=== PATIENT | female | born 1985 | race Caucasian/White ===

== ENCOUNTER 2017-01-01 11:29 | Observation (INO) | payer MEDICAID, OTHER ==
[2017-01-01 11:30] VITALS: BMI 23.0
[2017-01-01 11:41] VITALS: RESP 18; O2SAT 100
--- NOTE | 2017-01-01 12:28 | ED PDOC ---
Arrival/HPI - General Chief Complaint: Dizziness/Lightheaded Time Seen by Provider: 01/01/17 11:44 Historian: Patient - History of Present Illness Narrative History of Present Illness (Text): 01/01/17 11:57 A 31 year old female, who denies any past medical history, presents to the emergency department for dizziness, which began 2 days ago. The patient reports that she was at [employer] and immediately after a roller coaster ride she began to feel dizzy ,with a spinning sensation, and associated nausea, and the symptoms have persisted ever since. She denies any vomiting, vision changes, fever, shortness of breath, abdominal pain, polyuria, dysuria, headaches, or any other symptoms at this time. LMP: 12/25/16 PMD: None. Time/Duration: < week (2 days ) Symptom Onset: Sudden Symptom Course: Unchanged Activities at Onset: Significant (Roller coaster) Context: Other ([employer]) Past Medical History - Provider Review Nursing Documentation Reviewed: Yes - Cardiac Hx Cardiac Disorders: No - Pulmonary Hx Respiratory Disorders: No - Neurological Hx Neurological Disorder: No - HEENT Hx HEENT Disorder: No - Renal Hx Renal Disorder: No - Endocrine/Metabolic Hx Endocrine Disorders: No - Hematological/Oncological Hx Blood Disorders: No - Integumentary Hx Dermatological Disorder: No - Musculoskeletal/Rheumatological Hx Musculoskeletal Disorders: No - Gastrointestinal Hx Gastrointestinal Disorders: No - Genitourinary/Gynecological Hx Genitourinary Disorders: No - Psychiatric Hx Psychophysiologic Disorder: No Hx Substance Use: No - Surgical History Hx Section: Yes (x2) Family/Social History - Physician Review Nursing Documentation Reviewed: Yes Family/Social History: No Known Family HX Smoking Status: Never Smoked Hx Alcohol Use: No Hx Substance Use: No Allergies/Home Meds Allergies/Adverse Reactions: Allergies No Known Allergies Allergy (Verified 11/04/15 09:35) Home Medications: Home Meds Medication Instructions Recorded Confirmed Vit No.126/Iron/Folic 1 mg PO DAILY 11/04/15 01/01/17 [Classic Tablet] Review of Systems - Physician Review All systems were reviewed & negative as marked: Yes - Review of Systems Constitutional: absent: Fevers Eyes: absent: Vision Changes Respiratory: absent: SOB Cardiovascular: absent: Chest Pain Gastrointestinal: Nausea. absent: Abdominal Pain, Vomiting Genitourinary Female: absent: Dysuria, Urine Output Changes Neurological: Dizziness (x2 days). absent: Headache, Focal Weakness, Speech Changes, Facial Droop, Disequilibrium, Seizure Physical Exam Vital Signs Reviewed: Yes Vital Signs Temp Pulse Resp BP Pulse Ox 01/01/17 13:45 97.9 F 72 18 98/62 L 100 01/01/17 11:36 98.4 F 85 18 115/71 100 Temperature: Afebrile Blood Pressure: Normal Pulse: Regular Respiratory Rate: Normal Appearance: Positive for: Well-Appearing, Non-Toxic, Comfortable Pain Distress: None Mental Status: Positive for: Alert and Oriented X 3 Finger Stick Blood Glucose: 84 - Systems Exam Head: Present: Atraumatic, Normocephalic Pupils: Present: PERRL Extroacular Muscles: Present: EOMI Conjunctiva: Present: Normal Ears: Present: Normal, NORMAL TM. No: Erythema Mouth: Present: Moist Mucous Membranes Pharnyx: Present: Normal. No: ERYTHEMA, EXUDATE Neck: Present: Normal Range of Motion Respiratory/Chest: Present: Clear to Auscultation, Good Air Exchange. No: Respiratory Distress, Accessory Muscle Use Cardiovascular: Present: Regular Rate and Rhythm, Normal S1, S2. No: Murmurs Abdomen: Present: Normal Bowel Sounds. No: Tenderness, Distention, Peritoneal Signs Back: Present: Normal Inspection Upper Extremity: Present: Normal Inspection. No: Cyanosis, Edema Lower Extremity: Present: Normal Inspection. No: Edema Neurological: Present: GCS=15, CN II-XII Intact, Speech Normal, Motor Func Grossly Intact, Normal Cerebellar Funct Skin: Present: Warm, Dry, Normal Color. No: Rashes Psychiatric: Present: Alert, Oriented x 3, Normal Insight, Normal Concentration Medical Decision Making ED Course and Treatment: 01/01/17 12:00 Impression: A 31 year old female with dizziness and spinning sensations and normal neuro exam. HCG is negative. Differential Diagnosis included but are not limited to: vertigo vs anemia vs dehydration Plan: -- EKG -- Antivert, Zofran -- test -- Reassess and disposition Prior Visits: Notes and results from previous visits were reviewed. The patient was last seen in the emergency department on 11/04/15 for back pain during . The patient was transferred to [facility]. Progress Notes: EKG: Ordered, reviewed, and independently interpreted the EKG. Rate : 67 BPM Rhythm : NSR Interpretation : Normal intervals, normal axis, no ST/T changes. Comparison : No previous EKG for comparison. - Lab Interpretations Lab Results: 01/01/17 13:30 01/01/17 13:30 Lab Results 01/01/17 13:30: WBC 7.4 D, RBC 4.50, Hgb 13.1, Hct 39.9, MCV 88.7, MCH 29.1, MCHC 32.8, RDW 12.5, Plt Count 226, MPV 9.2, Gran % 51.3, Lymph % (Auto) 40.3 H , Dewey % (Auto) 5.4, Eos % (Auto) 2.7, Baso % (Auto) 0.3, Gran # 3.79, Lymph # 3.0, Dewey # 0.4, Eos # 0.2, Baso # 0.02 01/01/17 13:30: Sodium 139, Potassium 4.3, Chloride 103, Carbon Dioxide 26, Anion Gap 14, BUN 13, Creatinine 0.6, Est GFR ( Amer) > 60, Est GFR (Non- Af Amer) > 60, Random Glucose 83, Calcium 9.5, Total Bilirubin 0.6, AST 19, ALT 27, Alkaline Phosphatase 54, Total Protein 7.3, Albumin 4.2, Globulin 3.0, Albumin/Globulin Ratio 1.4 - RAD Interpretation Radiology Orders: 01/01/17 13:02 Brain [HEAD W/O CONTRAST] [CT] Stat - Medication Orders Current Medication Orders: Discontinued Medications Sodium Chloride (Sodium Chloride 0.9%) 1,000 mls @ 999 mls/hr IV .Q1H1M STA Stop: 01/01/17 14:01 Last Admin: 01/01/17 13:18 Dose: 999 mls/hr Meclizine HCl (Antivert) 12.5 mg PO STAT STA Stop: 01/01/17 12:04 Last Admin: 01/01/17 12:14 Dose: 12.5 mg Meclizine HCl (Antivert) 12.5 mg PO STAT STA Stop: 01/01/17 13:02 Last Admin: 01/01/17 13:18 Dose: 12.5 mg Ondansetron HCl (Zofran Odt) 4 mg PO STAT STA Stop: 01/01/17 12:04 Last Admin: 01/01/17 12:14 Dose: 4 mg ED OBSERVATION Discharge: Yes Date of observation admission: 01/01/17 Time of observation admission: 11:44 - Observation admission statement Patient is being placed in observation because:: dizziness; needs workup and treatment and reassessment. - Goals of Observation Goals of observation are:: To improve symptoms and determine disposition. - Progress Note Progress Note: 01/01/17 13:02 Patient with noted history with normal exam. Given meclizine and zofran with resolution of nausea but not dizziness. Blood work and brain CT ordered as well as meclizine and IVF. 01/01/17 14:55 CT Brain: FINDINGS: HEMORRHAGE: No intracranial hemorrhage. BRAIN: No mass effect or edema. No atrophy or chronic microvascular ischemic changes. VENTRICLES: Unremarkable. No hydrocephalus. CALVARIUM: Unremarkable. PARANASAL SINUSES: Unremarkable as visualized. No significant inflammatory changes. MASTOID AIR CELLS: Unremarkable as visualized. No inflammatory changes. OTHER FINDINGS: None. IMPRESSION: Normal CT of the Head. 01/01/17 15:00 Patient's workup is negative with normal exam and unremarkable labs. She reports full resolution of symptoms - will d/c. Disposition/Present on Arrival - Present on Arrival Any Indicators Present on Arrival: No History of DVT/PE: No History of Uncontrolled Diabetes: No Urinary Catheter: No History of Decub. Ulcer: No History Surgical Site Infection Following: None - Disposition Have Diagnosis and Disposition been Completed?: Yes Diagnosis: Vertigo Disposition: HOME/ ROUTINE Disposition Time: 11:44 Patient Plan: Discharge Patient Problems: Current Active Problems Problem Status Onset Vertigo Acute Condition: GOOD Discharge Instructions (ExitCare): Vertigo (ED) Additional Instructions: Drink plenty of fluids. Take the meclizine as prescribed for dizziness and the ondansetron as prescribed for nausea. Follow up with ENT doctor. Return to the emergency department if any new concerning symptoms. Prescriptions: Meclizine [Meclizine*] 1 tab PO Q8H PRN #20 tab PRN Reason: Dizziness Ondansetron ODT [Zofran ODT] 1 tab PO Q8H PRN #10 odt PRN Reason: Nausea/Vomiting Referrals: Segundo Simms DO [Staff Provider] - Follow up with primary Forms: [employer] ([place]ijani)
[2017-01-01] MEDS ORDERED: Sodium Chloride 0.9% 1,000 ML IV STA (13:01)
[2017-01-01 13:41] LABS: BASO # 0.02 K/mm3 (0.0-2.0); BASO % 0.3 % (0.0-3.0); EOS # 0.2 (0.0-0.7); EOS % 2.7 % (1.5-5.0); GRAN # 3.79 (1.4-6.5); GRAN % 51.3 % (50.0-68.0); HEMOGLOBIN 13.1 g/dL (12.0-16.0); LYMPH % 40.3 % (22.0-35.0); MEAN CELL VOLUME 88.7 fl (80.0-105.0); MEAN CORPUSCULAR HEMOGLOBIN 29.1 pg (25.0-35.0); MEAN CORPUSCULAR HGB CONC 32.8 g/dl (31.0-37.0); MEAN PLATELET VOLUME 9.2 fl (7.0-11.0); MONO # 0.4 (0.1-0.6); MONO % 5.4 % (1.0-6.0); PLATELET COUNT 226 10^3/uL (120.0-450.0); RED CELL DISTRIBUTION WIDTH 12.5 % (11.5-14.5); WHITE BLOOD COUNT 7.4 10^3/ul (4.5-11.0)
[2017-01-01 13:50] VITALS: TEMP 97.9
[2017-01-01 13:51] LABS: ALB/GLOB RATIO 1.4 (1.1-1.8); ALBUMIN 4.2 g/dL (3.0-4.8); ALT/SGPT 27 U/L (7-56); AST/SGOT 19 U/L (15-39); BLOOD UREA NITROGEN 13 mg/dL (7-21); CALCIUM 9.5 mg/dL (8.4-10.5); GFR AFRICAN-AMERICAN > 60; GFR NON-AFRICAN AMERICAN > 60
--- NOTE | 2017-01-01 14:46 | CT ---
PROCEDURE: CT HEAD WITHOUT CONTRAST. HISTORY: dizzy COMPARISON: None available. TECHNIQUE: Axial computed tomography images were obtained through the head/brain without intravenous contrast. Radiation dose: Total exam DLP = 688 mGy-cm. This CT exam was performed using one or more of the following dose reduction techniques: Automated exposure control, adjustment of the mA and/or kV according to patient size, and/or use of iterative reconstruction technique. FINDINGS: HEMORRHAGE: No intracranial hemorrhage. BRAIN: No mass effect or edema. No atrophy or chronic microvascular ischemic changes. VENTRICLES: Unremarkable. No hydrocephalus. CALVARIUM: Unremarkable. PARANASAL SINUSES: Unremarkable as visualized. No significant inflammatory changes. MASTOID AIR CELLS: Unremarkable as visualized. No inflammatory changes. OTHER FINDINGS: None. IMPRESSION: Normal CT of the Head.
[2017-01-01 15:22] VITALS: BP 104/73; PULSE 68
--- NOTE | 2017-01-01 21:40 | CARD ---
APPROVED REPORT EKG Measurement Heart [id number] <Conclusion> Normal sinus rhythm Possible Left atrial enlargement Borderline ECG
== END 2017-01-01 15:22 | disposition home or self-care (01) ==
LOC: ED 11:29 → EROBSV 11:44 → ED 15:33
PROVIDERS: ADMIT Emergency Medicine; ATTEND Emergency Medicine
DX: R42 Dizziness and giddiness (principal)
CPT/HCPCS: 70450; 80053; 85025; 93005; 99285; G0378; J7040